=== PATIENT | female | born 1960 | race Caucasian/White ===

== ENCOUNTER → 2017-12-08 | Outpatient (REF) | payer OTHER ==
[2017-12-08 15:07] LABS: REASON FOR REVIEW COMPREHENSIVE REVIEW; SLIDE REVIEW Report; SOURCE PERIPHERAL SMEAR
== END ==
LOC: M LAB REF 14:38
DX: Z00.00 Encounter for general adult medical examination without abnormal findings (principal)

== ENCOUNTER → 2019-10-18 | Outpatient (REF) | payer BC, OTHER ==
[2019-10-18 13:57] LABS: BASO # 0.1 10^3/uL (0.0-0.2); BASO % 0.8 % (0.0-1.0); EOS # 0.2 10^3/uL (0.0-0.5); EOS % 2.1 % (0.0-3.0); HEMATOCRIT 43.7 % (36.0-47.0); HEMOGLOBIN 14.9 g/dl (12.0-15.5); LYMPH # 1.9 10^3/uL (1.5-5.0); LYMPH % 18.9 % (24.0-44.0); MEAN CORPUSCULAR HEMOGLOBIN 33.6 pg (27.0-33.0); MEAN CORPUSCULAR HGB CONC 34.1 g/dl (32.0-36.5); MEAN CORPUSCULAR VOLUME 98.6 fl (80.0-96.0); MONO # 0.5 10^3/uL (0.0-0.8); NEUTROPHILS # 7.4 10^3/uL (1.5-8.5); NEUTROPHILS % 72.8 % (36.0-66.0); PLATELET COUNT, AUTOMATED 733 10^3/uL (150-450); RED BLOOD COUNT 4.43 10^6/uL (4.00-5.40); WHITE BLOOD COUNT 10.1 10^3/uL (4.0-10.0)
[2019-10-18 14:17] LABS: TOTAL 25(OH) VITAMIN D 14.5 NG/ML (30.0-100.0)
[2019-10-18 14:44] LABS: ALBUMIN 4.7 GM/DL (3.2-5.2); BILIRUBIN,TOTAL 0.5 MG/DL (0.2-1.0); CALCIUM LEVEL 10.1 MG/DL (8.5-10.1); CHOLESTEROL RISK RATIO 6.068 (<5); CREATININE FOR GFR 1.44 MG/DL (0.55-1.30); FREE T4 1.13 NG/DL (0.76-1.46); GLOMERULAR FILTRATION RATE 39.7 (>51); POTASSIUM SERUM 4.5 MEQ/L (3.5-5.1); THYROID STIMULATING HORMONE 2.29 uIU/ML (0.358-3.740); TOTAL PROTEIN 8.3 GM/DL (6.4-8.2)
[2019-10-18 16:53] LABS: HEMOGLOBIN A1c 6.2 %
== END ==
LOC: M LAB REF 12:53
PROVIDERS: ATTEND Family Medicine
DX: Z13.228 Encounter for screening for other metabolic disorders (principal)

== ENCOUNTER → 2020-01-24 | Outpatient (REF) | payer BC ==
[2020-01-24 13:54] LABS: H PYLORI QUALITATIVE IgG DETECTED (NEGATIVE)
[2020-01-24 13:58] LABS: BASO # 0.1 10^3/uL (0.0-0.2); BASO % 0.7 % (0.0-1.0); EOS # 0.3 10^3/uL (0.0-0.5); EOS % 2.4 % (0.0-3.0); HEMATOCRIT 48.1 % (36.0-47.0); HEMOGLOBIN 16.1 g/dl (12.0-15.5); LYMPH # 1.7 10^3/uL (1.5-5.0); LYMPH % 15.4 % (24.0-44.0); MEAN CORPUSCULAR HEMOGLOBIN 32.4 pg (27.0-33.0); MEAN CORPUSCULAR HGB CONC 33.5 g/dl (32.0-36.5); MEAN CORPUSCULAR VOLUME 96.8 fl (80.0-96.0); MONO # 0.5 10^3/uL (0.0-0.8); MONO % 4.9 % (0.0-5.0); NEUTROPHILS # 8.2 10^3/uL (1.5-8.5); NEUTROPHILS % 76.1 % (36.0-66.0); PLATELET COUNT, AUTOMATED 757 10^3/uL (150-450); RED BLOOD COUNT 4.97 10^6/uL (4.00-5.40); WHITE BLOOD COUNT 10.8 10^3/uL (4.0-10.0)
[2020-01-24 14:07] LABS: ALBUMIN 4.7 GM/DL (3.2-5.2); ALT/SGPT 40 U/L (12-78); BILIRUBIN,TOTAL 0.5 MG/DL (0.2-1.0); BLOOD UREA NITROGEN 22 MG/DL (7-18); CARBON DIOXIDE LEVEL 30 MEQ/L (21-32); CHLORIDE LEVEL 100 MEQ/L (98-107); CHOLESTEROL LEVEL 177 MG/DL (<200); CHOLESTEROL RISK RATIO 4.214 (<5); CREATININE FOR GFR 1.36 MG/DL (0.55-1.30); GLOMERULAR FILTRATION RATE 42.2 (>45); GLUCOSE, FASTING 94 MG/DL (70-100); HDL CHOLESTEROL 42 MG/DL (>40); LDL CHOLESTEROL 98 MG/DL (<100); NON-HDL-C 135 MG/DL; POTASSIUM SERUM 4.7 MEQ/L (3.5-5.1); SODIUM LEVEL 135 MEQ/L (136-145); TOTAL PROTEIN 8.2 GM/DL (6.4-8.2); TRIGLYCERIDES LEVEL 186 MG/DL (<150)
[2020-01-24 14:10] LABS: TOTAL 25(OH) VITAMIN D 22.2 NG/ML (30.0-100.0)
[2020-01-24 14:49] LABS: HEMOGLOBIN A1c 6.2 %
== END ==
LOC: M LAB REF 13:16
PROVIDERS: ATTEND Physician Assistant
DX: R03.0 Elevated blood-pressure reading, without diagnosis of hypertension (principal); F41.8 Other specified anxiety disorders; R12 Heartburn; F19.11 Other psychoactive substance abuse, in remission; R73.03 Prediabetes; E78.2 Mixed hyperlipidemia; R60.0 Localized edema

== ENCOUNTER → 2020-05-01 | Outpatient (REF) | payer BC ==
[2020-05-01 17:52] LABS: ALBUMIN 4.2 GM/DL (3.2-5.2); BILIRUBIN,TOTAL 0.5 MG/DL (0.2-1.0); CALCIUM LEVEL 9.6 MG/DL (8.8-10.2); CREATININE FOR GFR 1.58 MG/DL (0.55-1.30); GLOMERULAR FILTRATION RATE 35.5 (>45); MAGNESIUM LEVEL 2.4 MG/DL (1.8-2.4); POTASSIUM SERUM 4.8 MEQ/L (3.5-5.1)
[2020-05-01 17:57] LABS: BASO # 0.1 10^3/uL (0.0-0.2); BASO % 0.6 % (0.0-1.0); EOS # 0.2 10^3/uL (0.0-0.5); EOS % 1.6 % (0.0-3.0); HEMATOCRIT 52.3 % (36.0-47.0); HEMOGLOBIN 17.2 g/dl (12.0-15.5); LYMPH # 1.6 10^3/uL (1.5-5.0); LYMPH % 14.4 % (24.0-44.0); MEAN CORPUSCULAR HEMOGLOBIN 30.1 pg (27.0-33.0); MEAN CORPUSCULAR HGB CONC 32.9 g/dl (32.0-36.5); MEAN CORPUSCULAR VOLUME 91.4 fl (80.0-96.0); MONO # 0.4 10^3/uL (0.0-0.8); MONO % 3.7 % (0.0-5.0); NEUTROPHILS # 8.6 10^3/uL (1.5-8.5); NEUTROPHILS % 79.2 % (36.0-66.0); PLATELET COUNT, AUTOMATED 805 10^3/uL (150-450); RED BLOOD COUNT 5.72 10^6/uL (4.00-5.40); WHITE BLOOD COUNT 10.8 10^3/uL (4.0-10.0)
== END ==
LOC: M LAB REF 17:06
PROVIDERS: ATTEND Physician Assistant
DX: D47.3 Essential (hemorrhagic) thrombocythemia (principal); D72.829 Elevated white blood cell count, unspecified; R71.8 Other abnormality of red blood cells; I10 Essential (primary) hypertension; R73.03 Prediabetes

== ENCOUNTER → 2020-05-08 | Outpatient (REF) | payer BC ==
[2020-05-08 19:35] LABS: CHLAMYDIA DNA AMPLIFICATION NEGATIVE (NEGATIVE); GC DNA AMPLIFICATION NEGATIVE (NEGATIVE)
== END ==
LOC: M LAB REF 17:19
PROVIDERS: ATTEND Physician Assistant
DX: Z11.3 Encounter for screening for infections with a predominantly sexual mode of transmission (principal); Z12.4 Encounter for screening for malignant neoplasm of cervix; Z01.419 Encounter for gynecological examination (general) (routine) without abnormal findings

== ENCOUNTER 2020-06-04 09:22 | Emergency (ER) | payer BC ==
[~2020-06-04] VITALS: Ht 165.1 cm; Wt 83.4 kg
[2020-06-04] MEDS ORDERED: PARO20TA3 (09:31)
[2020-06-04] MEDS ORDERED: ATOR1TAB19 (09:31)
[2020-06-04] MEDS ORDERED: HYDR12CA (09:31)
[2020-06-04] MEDS ORDERED: OMEP10CASR PO (09:31)
[2020-06-04] MEDS ORDERED: LISI-542 (09:31)
[2020-06-04] MEDS ORDERED: ACETAMINOPHEN 500 MG TAB PO ONE (10:30)
--- NOTE | 2020-06-04 10:51 | REP ---
Clinical: Trauma. Technique: AP, lateral, bilateral oblique views of the left fifth toe. Findings: No acute fracture or dislocation. No subcutaneous emphysema or foreign body. Impression: No acute fracture or dislocation appreciated. Electronically Signed by Bert Torres MD 06/04/2020 10:43 A
[2020-06-04] MEDS ORDERED: ISOVUE-370 76% 100ML VIAL As Ordered ONE (10:52)
[2020-06-04 10:55] LABS: BASO # 0.1 10^3/uL (0.0-0.2); BASO % 0.7 % (0.0-1.0); EOS # 0.2 10^3/uL (0.0-0.5); EOS % 1.6 % (0.0-3.0); HEMATOCRIT 52.6 % (36.0-47.0); HEMOGLOBIN 17.1 g/dl (12.0-15.5); LYMPH # 1.5 10^3/uL (1.5-5.0); LYMPH % 13.5 % (24.0-44.0); MEAN CORPUSCULAR HEMOGLOBIN 29.2 pg (27.0-33.0); MEAN CORPUSCULAR HGB CONC 32.5 g/dl (32.0-36.5); MEAN CORPUSCULAR VOLUME 89.9 fl (80.0-96.0); MONO # 0.6 10^3/uL (0.0-0.8); MONO % 5.1 % (0.0-5.0); NEUTROPHILS # 8.6 10^3/uL (1.5-8.5); NEUTROPHILS % 78.7 % (36.0-66.0); PLATELET COUNT, AUTOMATED 562 10^3/uL (150-450); RED BLOOD COUNT 5.85 10^6/uL (4.00-5.40); WHITE BLOOD COUNT 10.9 10^3/uL (4.0-10.0)
[2020-06-04] MEDS ORDERED: NS 500 ML IV ONE (11:00)
[2020-06-04 11:15] LABS: ERYTHROCYTE SEDIMENTATION RATE 1 mm/hr (0-30)
--- NOTE | 2020-06-04 11:49 | REP ---
Clinical: Discoloration and cold left foot. Technique: Contrast enhanced axial images through the pelvis and bilateral lower extremities using arterial angiographic technique with multiplanar re-formations and bilateral MIP us lower extremity arteriograms. Findings: Moderate atheromatous partially calcified plaquing through the distal aorta and common iliac arteries noted through the pelvis along with mild amounts of mixed atheromatous plaquing involving the common femoral arteries. The remainder of the bilateral lower extremity arterial structures including common femoral artery, superficial femoral arteries, popliteal arteries, profunda arteries appear normal. There is symmetric normal bilateral three-vessel runoff through the calves and ankles. Visualized structures within the pelvis including visualized portions of the small large bowel, bladder, and uterus/adnexa appear normal. No pelvic fluid/ascites. No adenopathy. No free air. Surrounding musculoskeletal structures are intact. Impression: 1. Essentially normal bilateral lower extremity arteriograms with normal three-vessel runoff through the bilateral ankles. 2. No obvious acute process within the pelvis. Electronically Signed by Bert Torres MD 06/04/2020 11:41 A
--- NOTE | 2020-06-04 11:50 | REP ---
Clinical: Left toes/foot discoloration . Technique: Malik scale and color Doppler evaluation using linear high frequency transducer. Findings: Ultrasound examination of the left lower extremity deep venous structures from the common femoral vein to the popliteal vein demonstrates normal compressibility flow and wave patterns in response to respiration and augmentation. There is no evidence for deep venous thrombosis. Impression: No evidence for deep venous thrombosis. Electronically Signed by Bert Torres MD 06/04/2020 11:42 A
--- NOTE | 2020-06-04 12:02 | ECGEPIP ---
[facility] - ED Test Date: 2020-06-04 Pat Name: TETO LUZ Department: Room: - Gender: Female Kinesiologist: : [id number] Requested By: FRIEDA Mills PA-C Order Number: [id number] Reading MD: Fidelia Nava Measurements Intervals [place] Rate: 64 P: 56 WY: 158 QRS: 37 QRSD: 85 T: 62 QT: 372 QTc: 385 Interpretive Statements SINUS RHYTHM No prior Electronically Signed on 06-04-2020 12:01:53 EDT by Fidelia Nava
[2020-06-04] MEDS ORDERED: ASPIRIN 325 MG TAB PO ONE (12:30)
[2020-06-04] MEDS ORDERED: ASPI-1 PO (12:33)
[2020-06-04 12:37] VITALS: BP 149/73
== END 2020-06-04 12:44 | disposition home or self-care (01) ==
LOC: M ED 09:22
DX: I77.9 Disorder of arteries and arterioles, unspecified (principal); I10 Essential (primary) hypertension; K21.9 Gastro-esophageal reflux disease without esophagitis; Z87.891 Personal history of nicotine dependence; Z79.899 Other long term (current) drug therapy
CPT/HCPCS: 36415; 73660; 73706; 80047; 85025; 85652; 86140; 87040; 93005; 93971; 96360; 99284; Q9967

== ENCOUNTER → 2020-06-05 | Outpatient (CLI) | payer BC ==
[~2020-06-05] MED LIST: ASPI-1 PO; ATOR1TAB19; HYDR12CA; LISI-542; OMEP10CASR PO; PARO20TA3
--- NOTE | 2020-06-06 16:14 | REPMRS ---
Patient History The patient states she had a clinical breast exam in 2019.Patient is postmenopausal. Family history of prostate cancer at age 64 in father. 3D TOMOSYNTHESIS WAS PERFORMED. [facility]%. VOLPARA DAVID B. Digital Woman Screen Mammo: June 05, 2020 - Exam #: [id number] Bilateral CC and MLO view(s) were taken. Technologist: Breana Gomez, Technologist FINDINGS: The breast tissue is heterogeneously dense. This may lower the sensitivity of mammography. There has been no change in the appearance of the mammogram from the prior studies. There is a moderate amount of residual fibroglandular tissue which is fairly symmetric. There is no interval development of dominant mass, areas of architectural distortion, or clustered microcalcification typical of malignancy. Assessment: BI-RADS/ACR category 1 mammogram. Negative Mammogram. Recommendation Routine screening mammogram in 1 year (for women over age 40). This mammogram was interpreted with the aid of an FDA-approved computer-aided dectection system. Electronically Signed By: Silvino Malik MD 06/06/20 0520
== END ==
LOC: M WHC 14:26
PROVIDERS: ATTEND Physician Assistant
DX: Z12.31 Encounter for screening mammogram for malignant neoplasm of breast (principal)

== ENCOUNTER → 2020-07-31 | Outpatient (REF) | payer BC ==
[2020-07-31 14:10] LABS: BASO # 0.1 10^3/uL (0.0-0.2); BASO % 0.6 % (0.0-1.0); EOS # 0.2 10^3/uL (0.0-0.5); EOS % 1.8 % (0.0-3.0); LYMPH # 1.6 10^3/uL (1.5-5.0); LYMPH % 14.1 % (24.0-44.0); MEAN CORPUSCULAR HEMOGLOBIN 29.9 pg (27.0-33.0); MEAN CORPUSCULAR HGB CONC 32.5 g/dl (32.0-36.5); MEAN CORPUSCULAR VOLUME 91.9 fl (80.0-96.0); MONO # 0.5 10^3/uL (0.0-0.8); MONO % 4.2 % (0.0-5.0); NEUTROPHILS # 8.8 10^3/uL (1.5-8.5); NEUTROPHILS % 78.8 % (36.0-66.0); RED BLOOD COUNT 5.92 10^6/uL (4.00-5.40); WHITE BLOOD COUNT 11.2 10^3/uL (4.0-10.0)
[2020-07-31 14:12] LABS: HEMOGLOBIN 17.7 g/dl (12.0-15.5)
[2020-07-31 14:13] LABS: HEMATOCRIT 54.4 % (36.0-47.0); PLATELET COUNT, AUTOMATED 850 10^3/uL (150-450)
[2020-07-31 14:14] LABS: ALBUMIN 4.3 GM/DL (3.2-5.2); BILIRUBIN,TOTAL 0.5 MG/DL (0.2-1.0); CALCIUM LEVEL 9.9 MG/DL (8.8-10.2); CREATININE FOR GFR 1.4 MG/DL (0.55-1.30); GLOMERULAR FILTRATION RATE 40.8 (>45); MAGNESIUM LEVEL 2.2 MG/DL (1.8-2.4); POTASSIUM SERUM 5.6 MEQ/L (3.5-5.1); TOTAL 25(OH) VITAMIN D 25.2 NG/ML (30.0-100.0); TOTAL PROTEIN 8.6 GM/DL (6.4-8.2)
[2020-07-31 16:17] LABS: HEMOGLOBIN A1c 6.1 %
== END ==
LOC: M LAB REF 08:30
PROVIDERS: ATTEND Physician Assistant
DX: N18.9 Chronic kidney disease, unspecified (principal); E83.42 Hypomagnesemia; D47.3 Essential (hemorrhagic) thrombocythemia; E55.9 Vitamin D deficiency, unspecified; I12.9 Hypertensive chronic kidney disease with stage 1 through stage 4 chronic kidney disease, or unspecified chronic kidney disease; R73.03 Prediabetes

== ENCOUNTER → 2020-08-15 | Outpatient (CLI) | payer BC ==
--- NOTE | 2020-09-01 07:24 | REP ---
RENAL ULTRASOUND CLINICAL: Stage III chronic renal disease. TECHNIQUE: Real-time reilly scale ultrasound examination using curved array transducer. FINDINGS: The kidneys are normal in reniform shape and demonstrate increased central sinus fat and cortical thinning consistent with chronic renal disease. No hydronephrosis, nephrolithiasis, or cystic lesions are identified. Right kidney measures 9.2 x 5.0 x 4.5 cm. Left kidney measures 9.3 x 4.9 x 5.3 cm. The bladder is collapsed. IMPRESSION: Changes related to chronic renal disease. No hydronephrosis. MTDD
== END ==
LOC: M RAD 08:28
PROVIDERS: ATTEND Internal Medicine Nephrology
DX: N18.3 Chronic kidney disease, stage 3 (moderate) (principal)

== ENCOUNTER → 2021-01-01 | Outpatient (REF) | payer BC ==
[2021-01-01 16:18] LABS: BASO # 0.1 10^3/uL (0.0-0.2); BASO % 0.7 % (0.0-1.0); EOS # 0.2 10^3/uL (0.0-0.5); EOS % 1.8 % (0.0-3.0); HEMATOCRIT 54.7 % (36.0-47.0); LYMPH # 1.5 10^3/uL (1.5-5.0); LYMPH % 12.9 % (24.0-44.0); MEAN CORPUSCULAR HEMOGLOBIN 28.7 pg (27.0-33.0); MEAN CORPUSCULAR HGB CONC 31.1 g/dl (32.0-36.5); MEAN CORPUSCULAR VOLUME 92.4 fl (80.0-96.0); MONO # 0.5 10^3/uL (0.0-0.8); MONO % 4.4 % (0.0-5.0); NEUTROPHILS # 9.5 10^3/uL (1.5-8.5); NEUTROPHILS % 79.6 % (36.0-66.0); PLATELET COUNT, AUTOMATED 989 10^3/uL (150-450); RED BLOOD COUNT 5.92 10^6/uL (4.00-5.40); WHITE BLOOD COUNT 11.9 10^3/uL (4.0-10.0)
[2021-01-01 16:52] LABS: ALBUMIN 4.2 GM/DL (3.2-5.2); BILIRUBIN,TOTAL 0.3 MG/DL (0.2-1.0); CALCIUM LEVEL 9.9 MG/DL (8.8-10.2); CHOLESTEROL RISK RATIO 5.15 (<5); CREATININE FOR GFR 1.39 MG/DL (0.55-1.30); FREE T4 0.93 NG/DL (0.76-1.46); MAGNESIUM LEVEL 2.2 MG/DL (1.8-2.4); POTASSIUM SERUM 5.6 MEQ/L (3.5-5.1); THYROID STIMULATING HORMONE 1.93 uIU/ML (0.358-3.740)
[2021-01-01 16:53] LABS: TOTAL 25(OH) VITAMIN D 25.1 NG/ML (30.0-100.0)
== END ==
LOC: M LAB REF 15:42
PROVIDERS: ATTEND Physician Assistant
DX: R71.8 Other abnormality of red blood cells (principal); R73.03 Prediabetes; E78.2 Mixed hyperlipidemia; E66.9 Obesity, unspecified; E55.9 Vitamin D deficiency, unspecified; E83.42 Hypomagnesemia; E53.8 Deficiency of other specified B group vitamins; N18.9 Chronic kidney disease, unspecified

== ENCOUNTER 2021-02-17 12:39 | Emergency (ER) | payer BC ==
[~2021-02-17] VITALS: Ht 165.1 cm; Wt 91.3 kg
[~2021-02-17 12:39] MED LIST changes: -LISI-542; +LISI-898
[2021-02-17] MEDS ORDERED: VITAMIND PO (13:06)
[2021-02-17] MEDS ORDERED: B-12100011 SL (13:06)
[2021-02-17] MEDS ORDERED: FURO20TA2 PO (13:06)
[2021-02-17] MEDS ORDERED: MAGN500T2 PO (13:06)
[2021-02-17] MEDS ORDERED: LISI10TA22 PO (13:06)
[2021-02-17] MEDS ORDERED: ECOT81TA5 PO (13:06)
[2021-02-17] MEDS ORDERED: LIDOCAINE 5% (LIDODERM) PATCH TD ONE (13:45)
[2021-02-17] MEDS ORDERED: methocarbamoL 750 MG TAB PO ONE (14:25)
[2021-02-17] MEDS ORDERED: LIDO5DIS41 TOP (15:40)
[2021-02-17] MEDS ORDERED: METH-1165 PO (15:40)
[2021-02-17 16:10] VITALS: BP 141/77
[2021-02-17] MEDS ORDERED: **NOTE PATIENT COMMENT** MISC XX SCH (21:00)
== END 2021-02-17 16:12 | disposition home or self-care (01) ==
LOC: M ED 12:39
DX: S29.011A Strain of muscle and tendon of front wall of thorax, initial encounter (principal); Y92.9 Unspecified place or not applicable; Y93.9 Activity, unspecified; Y99.9 Unspecified external cause status; N18.9 Chronic kidney disease, unspecified; F32.9 Major depressive disorder, single episode, unspecified; Z87.898 Personal history of other specified conditions

== ENCOUNTER 2021-04-01 08:31 | Emergency (ER) | payer BC ==
[~2021-04-01] VITALS: Ht 165.1 cm; Wt 86.4 kg
[~2021-04-01 08:31] MED LIST changes: +B-12100011 SL; +ECOT81TA5 PO; +FURO20TA2 PO; +LIDO5DIS41 TOP; +LISI10TA22 PO; +MAGN500T2 PO; +METH-1165 PO; +VITAMIND PO
[2021-04-01] MEDS ORDERED: NORCO, ANEXSIA 5/325MG TABLET (HYDROcodone/ACETAMINOPHEN) PO ONE (09:20)
[2021-04-01 09:22] LABS: BASO # 0.1 10^3/uL (0.0-0.2); BASO % 0.7 % (0.0-1.0); EOS # 0.3 10^3/uL (0.0-0.5); EOS % 1.8 % (0.0-3.0); HEMATOCRIT 50.1 % (36.0-47.0); HEMOGLOBIN 15.8 g/dl (12.0-15.5); LYMPH # 1.2 10^3/uL (1.5-5.0); MEAN CORPUSCULAR HEMOGLOBIN 28.2 pg (27.0-33.0); MEAN CORPUSCULAR HGB CONC 31.5 g/dl (32.0-36.5); MEAN CORPUSCULAR VOLUME 89.5 fl (80.0-96.0); MONO # 0.8 10^3/uL (0.0-0.8); MONO % 5.5 % (2.0-8.0); NEUTROPHILS # 11.4 10^3/uL (1.5-8.5); NEUTROPHILS % 82.4 % (36.0-66.0); PLATELET COUNT, AUTOMATED 864 10^3/uL (150-450); WHITE BLOOD COUNT 13.8 10^3/uL (4.0-10.0)
[2021-04-01 09:45] LABS: ERYTHROCYTE SEDIMENTATION RATE 4 mm/hr (0-30)
[2021-04-01 09:53] LABS: C REACTIVE PROTEIN QUANTITATIV 5.17 MG/DL (0.00-0.30); CALCIUM LEVEL 9.1 MG/DL (8.8-10.2); CREATININE FOR GFR 1.22 MG/DL (0.55-1.30); GLOMERULAR FILTRATION RATE 47.7 (>45)
--- NOTE | 2021-04-01 09:53 | REP ---
INDICATION: PAIN TO RIGHT FOOT COMPARISON: None. TECHNIQUE: AP, lateral, bilateral oblique views right foot. FINDINGS: Generalized age-related degenerative changes primarily involving the 1st metatarsophalangeal joint. No acute fracture or dislocation. Mild generalized soft tissue swelling cannot be excluded and should be correlated with physical examination. IMPRESSION: Mild soft tissue swelling. Age-related degenerative changes primarily involving the 1st metatarsophalangeal joint.. No acute fracture or dislocation. <Electronically signed by Bert Torres > 04/01/21 0949
[2021-04-01 10:46] VITALS: BP 148/82
[2021-04-01] MEDS ORDERED: COLCHICINE 0.6 MG TABLET PO ONE (12:00)
[2021-04-01] MEDS ORDERED: COLC0.6T47 PO (12:04)
[2021-04-01] MEDS ORDERED: PRED20TA PO (12:04)
[2021-04-01] MEDS ORDERED: HYDR-3713 PO (12:07)
== END 2021-04-01 12:16 | disposition home or self-care (01) ==
LOC: M ED 08:31
DX: M19.071 Primary osteoarthritis, right ankle and foot (principal); M10.9 Gout, unspecified; R22.41 Localized swelling, mass and lump, right lower limb; E11.9 Type 2 diabetes mellitus without complications; I10 Essential (primary) hypertension; E78.5 Hyperlipidemia, unspecified; N18.9 Chronic kidney disease, unspecified; F41.9 Anxiety disorder, unspecified; F32.9 Major depressive disorder, single episode, unspecified; Z87.891 Personal history of nicotine dependence; Z79.82 Long term (current) use of aspirin; Z79.899 Other long term (current) drug therapy

== ENCOUNTER → 2021-04-11 | Outpatient (CLI) | payer BC ==
[~2021-04-11] MED LIST changes: +COLC0.6T47 PO; +D 101000 PO; +HYDR-3713 PO; +HYDR500C PO; -PARO20TA3; +PARO20TA3 PO; +PRED20TA PO
--- NOTE | 2021-04-11 08:58 | REP ---
INDICATION: EVAL LIVER/SPLEEN FOR MYELOPROLIFERATIVE DISORDER. COMPARISON: Renal ultrasound 08/15/2020. TECHNIQUE: Real-time sonographic evaluation of ABDOMEN performed. Study is limited by body habitus and bowel gas. FINDINGS: The gallbladder demonstrates no evidence of intraluminal sludge or calculi, wall thickening or pericholecystic fluid. There is no intrahepatic biliary dilatation, common bile duct could not be visualized. The liver demonstrates significant diffuse increased echotexture compatible with diffuse fibrofatty infiltration. No gross underlying mass is seen. Pancreas could not be visualized. Spleen is enlarged measuring 15.3 x 17.7 x 6.0 cm, splenic index 1561. There is no evidence of hydronephrosis, cyst, mass, or calculus in either kidney. The right kidney measures 9.8 x 6.3 x 5.0 cm. Left renal dimensions are 10.1 x 7.0 x 4.9 cm. The abdominal aorta could not be visualized. No free fluid is seen. IMPRESSION: Extremely limited exam due to patient body habitus and bowel gas. Common bile duct not be visualized. There is diffuse fibrofatty infiltration of the liver. Splenomegaly. <Electronically signed by Silvino Malik > 04/11/21 0800
== END ==
LOC: M RAD 07:09
PROVIDERS: ATTEND Internal Medicine Hematology & Oncology
DX: C94.6 Myelodysplastic disease, not elsewhere classified (principal)

== ENCOUNTER → 2021-04-23 | Outpatient (CLI) | payer BC ==
[2021-04-23 11:19] LABS: BASO # 0.1 10^3/uL (0.0-0.2); BASO % 0.6 % (0.0-1.0); EOS # 0.1 10^3/uL (0.0-0.5); EOS % 1.6 % (0.0-3.0); HEMATOCRIT 53.4 % (36.0-47.0); HEMOGLOBIN 16.9 g/dl (12.0-15.5); LYMPH # 1.1 10^3/uL (1.5-5.0); LYMPH % 12.4 % (24.0-44.0); MEAN CORPUSCULAR HEMOGLOBIN 28.3 pg (27.0-33.0); MEAN CORPUSCULAR HGB CONC 31.6 g/dl (32.0-36.5); MEAN CORPUSCULAR VOLUME 89.4 fl (80.0-96.0); MONO # 0.3 10^3/uL (0.0-0.8); MONO % 2.9 % (2.0-8.0); NEUTROPHILS # 7.4 10^3/uL (1.5-8.5); NEUTROPHILS % 82.2 % (36.0-66.0); PLATELET COUNT, AUTOMATED 878 10^3/uL (150-450); RED BLOOD COUNT 5.97 10^6/uL (4.00-5.40)
== END ==
LOC: M LAB 10:28
PROVIDERS: ATTEND Internal Medicine Hematology & Oncology
DX: D75.0 Familial erythrocytosis (principal)

== ENCOUNTER → 2021-06-18 | Outpatient (REF) | payer BC ==
[~2021-06-18] MED LIST changes: +AUGM875T28 PO
[2021-06-18 13:05] LABS: HEPATITIS C VIRUS ABY INDEX 0.1 INDEX (<0.8); HIV 1&2 SCREEN CENTAUR NEGATIVE (NEGATIVE)
== END ==
LOC: M LAB REF 11:18
PROVIDERS: ATTEND Physician Assistant
DX: Z11.4 Encounter for screening for human immunodeficiency virus [HIV] (principal); Z11.59 Encounter for screening for other viral diseases

== ENCOUNTER → 2022-05-10 | Outpatient (CLI) | payer BC ==
[~2022-05-10] MED LIST changes: +ALLO100T; -ATOR1TAB19; +ATOR1TAB19 PO; +HYDR500C3 PO; -LISI-898; +LISI5TAB11
== END ==
LOC: M WHC 14:13
PROVIDERS: ATTEND Physician Assistant
DX: Z12.31 Encounter for screening mammogram for malignant neoplasm of breast (principal)

== ENCOUNTER → 2022-07-22 | Outpatient (CLI) | payer BC | LOC: M RAD 12:56 | PROVIDERS: ATTEND Physician Assistant | DX: I73.9 Peripheral vascular disease, unspecified (principal) ==

== ENCOUNTER → 2022-12-17 | Outpatient (REF) | payer BC ==
[~2022-12-17] MED LIST changes: +METF500T13
[2022-12-17 18:19] LABS: CREATININE, URINE 13.9 MG/DL; MALB URINE SIEMENS < 3.0 MG/DL; MAU/CREAT RATIO 21.5 MCG/MG (0.0-30.0)
== END ==
LOC: M LAB REF 16:52
PROVIDERS: ATTEND Nurse Practitioner Family
DX: N18.32 Chronic kidney disease, stage 3b (principal)

== ENCOUNTER → 2023-07-01 | Outpatient (REF) | payer BC ==
[~2023-07-01] MED LIST changes: +CLAR5TAB7 PO
[2023-07-01 18:29] LABS: ALBUMIN 4.3 G/DL (3.2-5.2); BILIRUBIN,DIRECT 0.2 MG/DL (<0.4); BILIRUBIN,TOTAL 0.7 MG/DL (0.3-1.2); CHOLESTEROL RISK RATIO 4.76 (<5); HDL CHOLESTEROL 33.4 MG/DL (>40); NON-HDL-C 125.6 MG/DL; TOTAL PROTEIN 7.5 G/DL (5.7-8.2)
[2023-07-01 18:38] LABS: HEMOGLOBIN A1c 5.9 % (4.0-6.0)
== END ==
LOC: M LAB REF 16:41
PROVIDERS: ATTEND Physician Assistant
DX: R73.03 Prediabetes (principal); E78.2 Mixed hyperlipidemia

== ENCOUNTER → 2023-07-08 | Outpatient (REF) | payer BC ==
[2023-07-08 18:57] LABS: TOTAL 25(OH) VITAMIN D 40.2 NG/ML (20.0-100.0)
[2023-07-08 18:58] LABS: FOLATE 6.6 NG/ML (>5.4); MAGNESIUM LEVEL 2.2 MG/DL (1.8-2.4)
== END ==
LOC: M LAB REF 17:42
PROVIDERS: ATTEND Physician Assistant
DX: R79.89 Other specified abnormal findings of blood chemistry (principal); E55.9 Vitamin D deficiency, unspecified; E83.42 Hypomagnesemia

== ENCOUNTER → 2023-08-12 | Outpatient (CLI) | payer BC | LOC: M WHC 08:29 | PROVIDERS: ATTEND Physician Assistant | DX: Z12.31 Encounter for screening mammogram for malignant neoplasm of breast (principal) ==

== ENCOUNTER → 2024-01-12 | Outpatient (CLI) | payer BC | LOC: M WUC 14:46 | PROVIDERS: ATTEND Physician Assistant | DX: M54.2 Cervicalgia (principal) ==

== ENCOUNTER → 2024-01-16 | Outpatient (CLI) | payer BC | LOC: M RAD 10:15 | PROVIDERS: ATTEND Nurse Practitioner Family | DX: Z12.2 Encounter for screening for malignant neoplasm of respiratory organs (principal) ==

== ENCOUNTER 2024-04-29 14:09 | Outpatient (RCR) | payer OTHER ==
[~2024-04-29 14:09] MED LIST changes: +LISI20TA33 PO
== END 2024-04-30 ==
LOC: M PT 14:09
PROVIDERS: ATTEND Physician Assistant
DX: M54.2 Cervicalgia (principal); M47.22 Other spondylosis with radiculopathy, cervical region

== ENCOUNTER → 2024-08-17 | Outpatient (CLI) | payer OTHER ==
[~2024-08-17] MED LIST changes: +LISI30TA4 PO; +PARO30TA65 PO
== END ==
LOC: M WHC 13:00
PROVIDERS: ATTEND Physician Assistant
DX: Z12.31 Encounter for screening mammogram for malignant neoplasm of breast (principal)

== ENCOUNTER → 2024-09-08 | Outpatient (REF) | payer OTHER ==
[2024-09-10 13:26] LABS: HPV APTIMA Detected (Not Detected)
== END ==
LOC: M LAB REF 16:23
PROVIDERS: ATTEND Physician Assistant
DX: Z11.3 Encounter for screening for infections with a predominantly sexual mode of transmission (principal); Z01.419 Encounter for gynecological examination (general) (routine) without abnormal findings; Z12.4 Encounter for screening for malignant neoplasm of cervix

== ENCOUNTER → 2025-01-20 | Outpatient (CLI) | payer MEDICARE, MEDICAID | LOC: M RAD 06:24 | PROVIDERS: ATTEND Physician Assistant | DX: Z87.891 Personal history of nicotine dependence (principal) ==

== ENCOUNTER → 2025-02-02 | Outpatient (REF) | payer MEDICARE, MEDICAID | LOC: M LAB REF 17:43 | PROVIDERS: ATTEND Otolaryngology | DX: C02.9 Malignant neoplasm of tongue, unspecified (principal) ==

== ENCOUNTER → 2025-02-11 | Outpatient (CLI) | payer MEDICARE, MEDICAID ==
[~2025-02-11] MED LIST changes: +ISOVUE-370 76% 100ML VIAL As Ordered ONE
[2025-02-11 09:14] LABS: BASO # 0.1 10^3/uL (0.0-0.2); BASO % 0.4 % (0.0-1.0); EOS # 0.1 10^3/uL (0.0-0.5); EOS % 0.7 % (0.0-3.0); HEMATOCRIT 38.4 % (36.0-47.0); HEMOGLOBIN 13.2 g/dl (12.0-15.5); LYMPH # 1.4 10^3/uL (1.5-5.0); LYMPH % 11.8 % (24.0-44.0); MEAN CORPUSCULAR HEMOGLOBIN 37.2 pg (27.0-33.0); MEAN CORPUSCULAR HGB CONC 34.4 g/dl (32.0-36.5); MEAN CORPUSCULAR VOLUME 108.2 fl (80.0-96.0); MONO # 0.4 10^3/uL (0.0-0.8); MONO % 3.6 % (2.0-8.0); NEUTROPHILS # 10.1 10^3/uL (1.5-8.5); NEUTROPHILS % 83.1 % (36.0-66.0); PLATELET COUNT, AUTOMATED 670 10^3/uL (150-450); RED BLOOD COUNT 3.55 10^6/uL (4.00-5.40); WHITE BLOOD COUNT 12.1 10^3/uL (4.0-10.0)
[2025-02-11 09:58] LABS: CALCIUM LEVEL 9.8 MG/DL (8.3-10.6); CREATININE FOR GFR 1.74 MG/DL (0.55-1.30); GLOMERULAR FILTRATION RATE 31.3 (>45); POTASSIUM SERUM 4.5 MMOL/L (3.5-5.1)
== END ==
LOC: M RAD 08:29
PROVIDERS: ATTEND Otolaryngology
DX: C02.2 Malignant neoplasm of ventral surface of tongue (principal)
CPT/HCPCS: 36415; 70450; 70491; 71260; 80048; 85025; Q9967

== ENCOUNTER → 2025-03-09 | Outpatient (REF) | payer MEDICARE, MEDICAID ==
[~2025-03-09] MED LIST changes: -ISOVUE-370 76% 100ML VIAL As Ordered ONE
== END ==
LOC: M SFHCWAGY 13:15
PROVIDERS: ATTEND Nurse Practitioner Family
DX: D07.1 Carcinoma in situ of vulva (principal)

== ENCOUNTER → 2025-03-14 | Outpatient (CLI) | payer MEDICARE, MEDICAID | LOC: M PLARAD 11:46 | PROVIDERS: ATTEND Otolaryngology | DX: C06.9 Malignant neoplasm of mouth, unspecified (principal) | CPT/HCPCS: 78815; A9552 ==

== ENCOUNTER → 2025-03-17 | Outpatient (REF) | payer MEDICARE, MEDICAID | LOC: M SFHCWAGY 18:17 | PROVIDERS: ATTEND Specialist | DX: C51.9 Malignant neoplasm of vulva, unspecified (principal) ==

== ENCOUNTER → 2025-07-25 | Outpatient (CLI) | payer MEDICARE ==
[~2025-07-25] MED LIST changes: -ALLO100T; +ALLO100T PO; +COLA100C5 PO; +FAMO20TA4 PO; +HYDR12.510; -HYDR12CA; -HYDR500C PO; +HYDR500C20 PO; +IBUP600T42 PO; +LIDO1ADH93 TOP; +LIDO30CR18 TOP; -LIDO5DIS41 TOP; +METF500T13 PO; +OXYC1TAB23 PO
== END ==
LOC: M PLARAD 07:36
PROVIDERS: ATTEND Otolaryngology
DX: C06.89 Malignant neoplasm of overlapping sites of other parts of mouth (principal)
CPT/HCPCS: 78815; A9552

== ENCOUNTER → 2025-09-22 | Outpatient (CLI) | payer MEDICARE, MEDICAID ==
[~2025-09-22] MED LIST changes: +ASPI81TA26 PO; -COLC0.6T47 PO; +COLC0.6T53 PO; -HYDR500C20 PO; +HYDR500C23 PO
== END ==
LOC: M WHC 10:26
PROVIDERS: ATTEND Nurse Practitioner Family
DX: Z12.31 Encounter for screening mammogram for malignant neoplasm of breast (principal); R92.323 Mammographic fibroglandular density, bilateral breasts

== ENCOUNTER → 2025-09-22 | Outpatient (REF) | payer MEDICARE, MEDICAID ==
[~2025-09-22] MED LIST changes: -ASPI81TA26 PO; +HYDR500C20 PO; -HYDR500C23 PO
[2025-09-24 14:12] LABS: HPV APTIMA Not Detected (Not Detected)
== END ==
LOC: M SFHCWAGY 13:14
PROVIDERS: ATTEND Nurse Practitioner Family
DX: Z12.4 Encounter for screening for malignant neoplasm of cervix (principal); B97.7 Papillomavirus as the cause of diseases classified elsewhere; D07.1 Carcinoma in situ of vulva
CPT/HCPCS: 87624; G0123

== ENCOUNTER 2025-10-12 12:03 | Day surgery (SDC) | payer MEDICARE, MEDICAID ==
[~2025-10-12] VITALS: Ht 165.1 cm; Wt 47.3 kg
[~2025-10-12 12:03] MED LIST changes: +ASPI81TA26 PO; -HYDR500C20 PO; +HYDR500C23 PO
[2025-10-12] MEDS ORDERED: LIDOCAINE 2% 100 MG/5 ML SDV (FOR ANES.) As Ordered ONE (14:35)
[2025-10-12 16:05] VITALS: BP 193/84
[2025-10-12] MEDS: hydrALAZINE 20 MG/ML 1 ML VIAL IV PRN (16:05)
[2025-10-12 16:40] VITALS: BP 146/65; TEMP 98.1; O2SAT 99
== END 2025-10-12 15:55 | disposition home or self-care (01) ==
LOC: M OPP 12:03
PROVIDERS: ATTEND Surgery
DX: Z12.11 Encounter for screening for malignant neoplasm of colon (principal); D12.6 Benign neoplasm of colon, unspecified; A63.0 Anogenital (venereal) warts; K44.9 Diaphragmatic hernia without obstruction or gangrene; R10.13 Epigastric pain; R12 Heartburn; Z88.8 Allergy status to other drugs, medicaments and biological substances; Z79.82 Long term (current) use of aspirin; Z79.84 Long term (current) use of oral hypoglycemic drugs; Z79.899 Other long term (current) drug therapy; Z87.891 Personal history of nicotine dependence
CPT/HCPCS: 43235; 45385; 88305; J0360

== ENCOUNTER → 2025-11-01 | Outpatient (CLI) | payer MEDICARE, MEDICAID ==
[2025-11-01 09:45] LABS: BASO # 0.0 10^3/uL (0.0-0.2); BASO % 0.7 % (0.0-1.0); EOS # 0.1 10^3/uL (0.0-0.5); EOS % 1.0 % (0.0-3.0); LYMPH # 1.0 10^3/uL (1.5-5.0); LYMPH % 17.8 % (24.0-44.0); MONO # 0.2 10^3/uL (0.0-0.8); MONO % 4.2 % (2.0-8.0); NEUTROPHILS # 4.4 10^3/uL (1.5-8.5); NEUTROPHILS % 76.0 % (36.0-66.0); PLATELET COUNT, AUTOMATED 323 10^3/uL (150-450)
[2025-11-01 10:20] LABS: ALT/SGPT 19.0 U/L (7.0-40); AST/SGOT 23.0 U/L (<34); CALCIUM LEVEL 9.3 MG/DL (8.3-10.6); CARBON DIOXIDE LEVEL 31.0 MMOL/L (20-31); CHLORIDE LEVEL 101.0 MMOL/L (98-107); CREATININE FOR GFR 1.28 MG/DL (0.55-1.30); GLOMERULAR FILTRATION RATE 46.5 (>45); POTASSIUM SERUM 4.6 MMOL/L (3.5-5.1); SODIUM LEVEL 140.0 MMOL/L (136-145)
== END ==
LOC: M LAB 08:18
PROVIDERS: ATTEND Internal Medicine Medical Oncology
DX: D69.6 Thrombocytopenia, unspecified (principal)

== ENCOUNTER → 2025-11-01 | Outpatient (REF) | payer MEDICARE, MEDICAID | LOC: M LAB REF 16:15 | PROVIDERS: ATTEND Surgery | DX: D48.5 Neoplasm of uncertain behavior of skin (principal) ==